=== PATIENT | male | born 1950 | race Caucasian/White ===

== ENCOUNTER 2023-01-02 07:09 | Day surgery (SDC) | payer OTHER ==
[~2023-01-02] VITALS: Ht 167.6 cm; Wt 78.0 kg
[2023-01-02] MEDS ORDERED: MIDAZOLAM HCL 5 MG/5 ML VIAL ONE (10:43)
[2023-01-02] MEDS ORDERED: MEPERIDINE 50 MG/ML VIAL ONE (10:43)
[2023-01-02] MEDS ORDERED: SIMETHICONE 40 MG/0.6 ML ML ONE (10:43)
[2023-01-02 17:05] VITALS: BP_SYST 152
== END 2023-01-02 11:45 | disposition home or self-care (01) ==
LOC: SDS 07:09 → SMU 07:11 → SDS 11:45
PROVIDERS: ATTEND Internal Medicine Gastroenterology
DX: Z12.11 Encounter for screening for malignant neoplasm of colon (principal); K64.8 Other hemorrhoids; Z20.822 Contact with and (suspected) exposure to COVID-19
CPT/HCPCS: 45378; 87426; 36415; 99152; G0378; J2250; J2175